=== PATIENT | male | born 1950 | race Caucasian/White ===

== ENCOUNTER 2019-08-05 07:30 | Day surgery (SDC) | payer MEDICARE, BC ==
[~2019-08-05 07:30] MED LIST: Lactated Ringers 1,000 ML IV SCH; Sodium Chloride 0.9% 10 ML Syringe FLUSH PRN
[2019-08-05] MEDS ORDERED: Lidocaine 1% PF 2 ML SDV INJECT ONE (07:31)
[2019-08-05] MEDS ORDERED: Propofol 200 MG/20 ML SDV IV ONE (07:31)
--- NOTE | 2019-08-05 08:50 | PCM.OPNOTE ---
- General Post-Op/Procedure Note Date of Surgery/Procedure: 08/05/19 Operative Procedure(s): c scope Findings: nl exam Pre Op Diagnosis: screening. for colon cancer Post-Op Diagnosis: Same Anesthesia Technique: MAC Primary Surgeon: Hong English Anesthesia Provider: Austin Wright Complications: None Condition: Good Free Text/Narrative:: see dictation
--- NOTE | 2019-08-05 11:59 | OR ---
DATE OF OPERATION: 08/05/2019 SURGEON: Hong English MD PROCEDURE PERFORMED: Colonoscopy. PREOPERATIVE DIAGNOSIS: Need for screening colonoscopy. POSTOPERATIVE DIAGNOSIS: Normal exam. INDICATIONS FOR PROCEDURE: This is a 68-year-old white male who presents for a screening colonoscopy. He is without complaints. DESCRIPTION OF PROCEDURE: After an excellent IV sedation was administered, digital rectal exam was performed. No marked abnormality was noted. Flexible colonoscope was inserted and advanced to the cecum. Prep was excellent. The following findings were noted. Ascending colon, unremarkable. Transverse colon, unremarkable. Descending colon, unremarkable. Sigmoid and rectum, unremarkable. Colon was deflated. The scope was removed. The patient tolerated the procedure well, was taken recovery in good condition. Repeat scope in 10 years. /[id number] MATTHEW/STACY
== END 2019-08-05 09:40 | disposition home or self-care (01) ==
LOC: FB.SDS 07:30
PROVIDERS: ATTEND Surgery
DX: Z12.11 Encounter for screening for malignant neoplasm of colon (principal); I10 Essential (primary) hypertension; E78.5 Hyperlipidemia, unspecified; E11.42 Type 2 diabetes mellitus with diabetic polyneuropathy; F41.9 Anxiety disorder, unspecified; K21.9 Gastro-esophageal reflux disease without esophagitis; M19.90 Unspecified osteoarthritis, unspecified site; Z79.84 Long term (current) use of oral hypoglycemic drugs; Z79.82 Long term (current) use of aspirin; Z79.899 Other long term (current) drug therapy
CPT/HCPCS: 00812-QZ; 82962; J2001; J2704; J7120

== ENCOUNTER 2025-06-02 12:37 | Emergency (ER) | payer MEDICARE, BC ==
[2025-06-02] MEDS ORDERED: Midazolam 1 MG/ML 2 ML SDV IV ONE (12:38)
[2025-06-02] MEDS ORDERED: Ketamine 500 mg/10 ML MDV IV ONE (12:38)
[2025-06-02] MEDS ORDERED: HYDROmorphone 2 MG/ML SDV IV ONE (12:38)
[2025-06-02] MEDS ORDERED: Propofol 200 MG/20 ML SDV IV ONE (12:38)
== END 2025-06-02 14:58 | disposition home or self-care (01) ==
LOC: FB.ED 12:37
DX: S43.014A Anterior dislocation of right humerus, initial encounter (principal); S43.034A Inferior dislocation of right humerus, initial encounter; I10 Essential (primary) hypertension; E78.00 Pure hypercholesterolemia, unspecified; E11.9 Type 2 diabetes mellitus without complications; Z90.49 Acquired absence of other specified parts of digestive tract; Z79.82 Long term (current) use of aspirin; Z79.84 Long term (current) use of oral hypoglycemic drugs; Z79.899 Other long term (current) drug therapy; W20.8XXA Other cause of strike by thrown, projected or falling object, initial encounter
CPT/HCPCS: 23650; 23655; 73020; 73030; 99152; 99153; 99283; J1171; J2250; J2704; J3490